=== PATIENT | female | born 1990 | race Caucasian/White ===

== ENCOUNTER → 2018-04-22 | Outpatient (CLI) | payer SELFPAY ==
[~2018-04-22] MED LIST: ACET-3143 PO; IBU800 GT; PREN-127 PO
[2018-04-22 09:39] LABS: PLATELET COUNT, AUTOMATED 217 K/uL (150-450)
== END ==
LOC: LAB 08:44
PROVIDERS: ATTEND Student in an Organized Health Care Education/Training Program
DX: Z34.91 Encounter for supervision of normal pregnancy, unspecified, first trimester (principal)
CPT/HCPCS: 36415; 81001; 85025; 86592; 86703; 86762; 86850; 86900; 86901; 87088; 87340

== ENCOUNTER → 2018-05-06 | Outpatient (CLI) | payer BC ==
[~2018-05-06] MED LIST changes: +FLU60SYR36 IM
== END ==
LOC: LAB 08:53
PROVIDERS: ATTEND Student in an Organized Health Care Education/Training Program
DX: Z11.3 Encounter for screening for infections with a predominantly sexual mode of transmission (principal); Z11.8 Encounter for screening for other infectious and parasitic diseases
CPT/HCPCS: 87491; 87591

== ENCOUNTER → 2018-07-22 | Outpatient (CLI) | payer MEDICAID ==
[~2018-07-22] MED LIST changes: +OSE75 PO
--- NOTE | 2018-07-22 14:18 | RADIOLOGY IMAGING REPORT ---
FACILITY: [facility] [place] PATIENT NAME: Chad Noyola : 1990 MR: [id number] V: [id number] EXAM DATE: ORDERING PHYSICIAN: MARIA L MORENO TECHNOLOGIST: [facility] Patient: Chad Noyola : 1990 Visit/Account:[id number] Date of Sevice: 07/22/2018 EXAMINATION: Ultrasound transabdominal OB > 14 weeks with anatomic evaluation HISTORY: 20 week anatomical survey COMPARISON: None. TECHNIQUE: Transabdominal imaging was performed for assessment of the fetus and maternal pelvic structures. T ransvaginal imaging was not performed. FINDINGS: Placenta: Posterior without previa. Uterus: Gravid, otherwise normal Cervix: Long and closed. Maternal Ovaries: Not visualized. Maternal and other adnexa findings: Not visualized Intrauterine gestations: One. presentation: Variable heart rate: Normal and regular at 153 bpm Amniotic fluid index: 13.46 cm Largest amniotic fluid pocket: 4.59 cm Gestational Parameters: BPD: 4.51 cm 19 weeks/ five days, 41% HC: 16.81 cm 19 weeks/ four days, 0.5% AC: 14.36 cm 19 weeks/ days, 39% FL: 3.12 cm 19 weeks/ five days, 36% Average ultrasound age (AUA): 19 weeks/five days, PENG 12/11/2018 Estimated gestational age by PENG: 19 weeks/six days, PENG 12/10/2018 Estimated weight (EFW): 306 grams +/- 45 grams EFW for PENG: 35 percentile Anatomic Survey: Intracranial structures, 4-chamber heart, stomach, kidneys, urinary bladder, spine, 3-vessel cord and cord insertion are unremarkable. Two upper and two lower extremities visualized. Cardiac ventricula r outflow tracts, palate and lips are unremarkable in appearance. IMPRESSION: Single viable fetus in variable presentation with an estimated gestational age by measur ements of 19 weeks and five days. Estimated gestational age by LMP is 19 weeks and six days. Estimated weight is 306 g which is equivalent to the 35th percentile Report Dictated By: Elina Hernandez MD at 07/22/2018 2:10 PM Report E-Signed By: Elina Hernandez MD at 07/22/2018 2:14 PM WSN:[email or web address]
== END ==
LOC: RAD 09:50
PROVIDERS: ATTEND Student in an Organized Health Care Education/Training Program
DX: Z36.89 Encounter for other specified antenatal screening (principal); Z3A.19 19 weeks gestation of pregnancy

== ENCOUNTER 2018-07-24 09:35 | Outpatient (RCR) | payer MEDICAID ==
--- NOTE | 2018-07-25 07:26 | PT INITIAL EVALUATION ---
MEDICAL DIAGNOSIS: leg pain, left TREATMENT DIAGNOSIS: same, SI pain DATE OF ONSET: 06/23/18 SUBJECTIVE: Chad presents to physical therapy with complaints of leg pain while sleeping. She reports that if she sleeps on her L side her L leg from her hip to knee will go numb. She states that if she sleeps on her R side her R leg from hip to knee will ache and throb. Furthermore, she reports that she cannot sleep on her back; therefore, she reports that she currently is not sleeping much at night due to these different pains. She reports that this pain started approximately 4-5 weeks ago. She is currently 20 weeks . She reports that her L hip is worse than his R hip. She reports that the pain is also worse after exercise. She reports that she currently runs and walks along with some stretching and strengthening exercises 4-5 times per week and the pain will start towards the end of her normal routine. Also, by the end of her exercises, she reports numbness in her B feet. She reports that she feels like her R hip pops on the front of the hip when moving it from hip extension to hip flexion. She states that the pain only goes down either the R or L leg during the night and not during the day. Lastly, she reports that she was told that she has high arches and states that everything feels a bit better when utilizing her insoles. Pain location is B hip anterior/lateral/posterior and described as numbness and throbbing. Pain scale is 1 on a ten point pain scale. REHAB PROBLEM LIST: Increased Pain Decreased ROM Decreased Function Decreased ADL's PREVIOUS MEDICAL HISTORY: See EMR OCCUPATION: Stay at home mom OBJECTIVE: Posture: She demonstrates normal posture mechanics with slight deviations with B rounded shoulders that is easily corrected with cues ROM: Trunk AROM: flexion, extension, R and L sidegliding: NIL with normal end feels. B hip flexion: minimal restriction with empty end feel. B hip extension: minimal restriction with empty end feel. Strength: B hip flexion, extension, abduction, adduction, B knee flexion and extension, B ankle DF and PF: 5/5 with no pain during MMT's. Palpation: TTP: B SI joints Sensation: L1-S2 intact B Special Tests: She tested positive for all 6/6 SI tests. Negative for low back pain and negative for radiating pain. Negative for trochanteric bursitis. Negative for iliopsoas/glute medius/glute suleiman/hamstring tendinopathies. Repeated SI flexion: increased pain B and decreased B hip AROM in all directions. Repeated SI extension: increased pain in B hips during; however, it abolished pain and improved B hip AROM in all directions. Mobility: Independent Gait: She demonstrated normal gait mechanics ASSESSMENT: Chad will benefit from skilled physical therapy to address the listed impairments to improve function and QOL. Based on the examination, her current classification is posterior derangement in her B SI joints that responded well to extension based principles. Furthermore, we will educate on presentation/minimizing as much as possible a rectus diathesis. She is independent with her specific exercise with a recommendation of an SI belt during physical activities. Short Term Goals 2 weeks: Pt will demonstrate directional preference, which will dramatically improve prognosis to return to prior level of function and to improve QOL. 4 weeks: If pt demonstrates directional preference, she will demonstrated abolished pain, which will improve function and QOL. 6 weeks: Pt will be independent with prevention and abolished pain with return to prior level of function. Patient's Goals decrease pain so that she can continue to exercise and sleep better PLAN: Patient to be seen for Manual Therapy/STM/MET Strengthening/condition Range of Motion Spinal Stabilization Work Hardening/Cond Stretching Neuromuscular Re-ed Closed Chain Program Posture/Body mechanics Home Exercise Program Therapeutic Activities 2x/Week for 6 Weeks If you have any questions, comments, or concerns about this report or plan, please contact me at . Thank you, Jose Shin, PT, DPT [facility]
[2018-09-17] MEDS ORDERED: RHO(150015 IM (11:06)
[2018-09-17] MEDS ORDERED: DIPH0.5S2 IM (11:06)
== END 2018-07-24 18:00 | disposition home or self-care (01) ==
LOC: PT 09:35
PROVIDERS: ATTEND Student in an Organized Health Care Education/Training Program
DX: O99.89 Other specified diseases and conditions complicating pregnancy, childbirth and the puerperium (principal); M79.605 Pain in left leg; Z3A.20 20 weeks gestation of pregnancy
CPT/HCPCS: 97161

== ENCOUNTER 2018-08-18 10:00 | Outpatient (CLI) | payer MEDICAID ==
[~2018-08-18] VITALS: Ht 165.1 cm; Wt 61.7 kg
[2018-08-18 10:25] VITALS: BP 120/72; Ht 165.1 cm; Wt 61.7 kg
== END 2018-08-18 10:44 | disposition home or self-care (01) ==
LOC: OB 10:00 → L&D 10:00 → OB 10:00 → UNDOADMOB 10:00 → UNDODISOB 10:44 → L&D 10:44 → EDSTATUS 08-19 16:19
PROVIDERS: ATTEND Obstetrics & Gynecology
DX: O36.8120 Decreased fetal movements, second trimester, not applicable or unspecified (principal); Z3A.23 23 weeks gestation of pregnancy
CPT/HCPCS: 59025; G0463; 99213; G0378; G0379

== ENCOUNTER → 2018-09-17 | Outpatient (CLI) | payer MEDICAID ==
[2018-08-18 10:25] VITALS: BMI 22.6
[~2018-09-17] MED LIST changes: +DIPH0.5S2 IM; +RHO(150015 IM
[2018-09-17 11:59] LABS: PLATELET COUNT, AUTOMATED 186 K/uL (150-450)
== END ==
LOC: LAB 08:44
PROVIDERS: ATTEND Student in an Organized Health Care Education/Training Program
DX: Z34.92 Encounter for supervision of normal pregnancy, unspecified, second trimester (principal)
CPT/HCPCS: 36415; 82950; 85025

== ENCOUNTER → 2018-09-18 | Outpatient (CLI) | payer MEDICAID ==
[2018-08-18 10:25] VITALS: BMI 22.6
== END ==
LOC: LAB 08:14
PROVIDERS: ATTEND Student in an Organized Health Care Education/Training Program
DX: O99.810 Abnormal glucose complicating pregnancy (principal)
CPT/HCPCS: 36415; 82951; 82952

== ENCOUNTER → 2018-09-19 | Outpatient (CLI) | payer MEDICAID ==
[2018-08-18 10:25] VITALS: BMI 22.6
--- NOTE | 2018-09-19 13:59 | RADIOLOGY IMAGING REPORT ---
FACILITY: [facility] PATIENT NAME: Chad Noyola : 1990 MR: [id number] V: [id number] EXAM DATE: [id number] ORDERING PHYSICIAN: MARIA L MORENO TECHNOLOGIST: Location: [facility] Patient: Chad Noyola : 1990 Visit/Account:[id number] Date of Sevice: 09/19/2018 EXAMINATION: Ultrasound transabdominal OB > 14 weeks with anatomic evaluation HISTORY: Size greater than dates COMPARISON: July 22, 2018 TECHNIQUE: Transabdominal imaging was performed for assessment of the fetus and maternal pelvic structures. T ransvaginal imaging was not performed. FINDINGS: Placenta: Posterior without previa. Uterus: Gravid, otherwise normal Cervix: Not evaluated Maternal Ovaries: Not visualized. Maternal and other adnexa findings: Not evaluated Intrauterine gestations: One. presentation: Cephalic heart rate: Normal and regular at 150 bpm Amniotic fluid index: 12.9 cm Largest amniotic fluid pocket: 4.03 cm Gestational Parameters: BPD: 7.13 cm 28 weeks/ five days, 49% HC: 25.78 cm 28 weeks/ one days, 14% AC: 23.43 cm 27 weeks/ six days, 27% FL: 5.33 cm 28 weeks/ three days, 35% Average ultrasound age (AUA): 28 weeks/two days, PENG 12/10/2018 Estimated gestational age by LMP: 28 weeks/two days, PENG 12/10/2018 Estimated weight (EFW): 1162 g grams +/- 170 grams EFW for LMP: 28 percentile Anatomic Survey: Anatomic survey was not performed IMPRESSION: Single viable fetus in cephalic presentation with an estimated gestational age by both m easurements and LMP of 20 weeks and two days. Estimated weight 1162 g equivalent to the 28th percentile Report Dictated By: Elina Hernandez MD at 09/19/2018 1:51 PM Report E-Signed By: Elina Hernandez MD at 09/19/2018 1:55 PM WSN:[email or web address]
== END ==
LOC: US 09:53
PROVIDERS: ATTEND Student in an Organized Health Care Education/Training Program
DX: Z02.9 Encounter for administrative examinations, unspecified (principal)